=== PATIENT | male | born 1995 ===

== ENCOUNTER 2019-06-02 12:05 | Emergency (ER) | payer OTHER ==
[2019-06-02 12:12] VITALS: BP 158/90
[2019-06-02] MEDS ORDERED: BOOSTRIX IM ONE (13:18)
--- NOTE | 2019-06-02 13:24 | Emergency Department Report ---
HPI - General Chief Complaint: Laceration/Recheck/Suture Time Seen by Provider: 06/02/19 12:59 - HPI HPI: 24-year-old male presents to the emergency department with a complaint of left thumb pain and a thumb laceration that occurred while working, just prior to presentation. Patient cut himself with a box spinner type bleed/knife. His last tetanus vaccination was about 5 years ago. He is right-hand dominant. He had a lot of bleeding at first but it improved with a pressure dressing. ED Past Medical Hx - Past Medical History Previous Medical History?: No - Surgical History Past Surgical History?: No - Social History Smoking Status: Current Every Day Smoker Substance Use Type: None - Medications Home Medications: Home Medications Medication Instructions Recorded Confirmed Last Taken Type Sulfamethoxazole/Trimethoprim 1 each PO BID #10 tablet 06/02/19 Unknown Rx [Bactrim DS TAB] ED Review of Systems ROS: Stated complaint: CUT LEFT HAND Other details as noted in HPI Comment: All other systems reviewed and negative Constitutional: denies: chills, fever Musculoskeletal: arthralgia. denies: joint swelling Skin: other (laceration). denies: rash Neurological: denies: numbness, paresthesias Physical Exam - Physical Exam Vital Signs: Vital Signs 06/02/19 12:11 Temperature 98.4 F Pulse Rate 77 Respiratory 20 Rate Blood Pressure 158/90 O2 Sat by Pulse 100 Oximetry Physical Exam: GENERAL: The patient is well-developed well-nourished. HENT: Normocephalic. Atraumatic. Patient has moist mucous membranes. EYES: Extraocular motions are intact. NECK: Supple. Trachea is midline. SKIN: There is a 3 cm laceration to the left thumb around the level of the interphalangeal joint. There is some venous oozing. NEURO: The patient is awake, alert, and oriented. The patient is cooperative. The patient has no focal neurologic deficits. Normal speech. MUSCULOSKELETAL: Tenderness to palpation to the affected left thumb. Capillary refill less than 2 seconds and radial pulses +2 over 4 to the affected left thumb and wrist. ED Course Vital Signs 06/02/19 12:11 Temperature 98.4 F Pulse Rate 77 Respiratory 20 Rate Blood Pressure 158/90 O2 Sat by Pulse 100 Oximetry - Laceration /Wound Repair Left Finger Wound Location: upper extremity (left thumb) Wound Length (cm): 3 Wound's Depth, Shape: superficial, linear Wound Explored: no foreign body removed Irrigated w/ Saline (ccs): 30 Anesthesia: 1% Lidocaine Volume Anesthetic (ccs): 3 Wound Repaired With: sutures Suture Size/Type: 5:0, proline Number of Sutures: 9 (1 horizontal mattress, the rest simple interrupted) Layer Closure?: No Sterile Dressing Applied?: Yes ED Medical Decision Making - Radiology Data Radiology results: image reviewed interpreted by me: X-ray of the left thumb does not show any fracture, dislocation or any acute process. - Medical Decision Making Patient presents with a left thumb laceration after cutting himself with a knife or a box spinner. He has full range of motion of the thumb and is neurov ascularly intact. X-ray does not show any fracture, dislocation, foreign body, or any other acute process. The laceration was closed with 9 sutures including 1 horizontal mattress. He'll be placed on some antibiotics. He is placed in a thumb splint for some immobilization as it is a high tension area. We discussed monitoring for infection. Sutures will need to be removed in 7 days. He will return with any worsening of his symptoms or any acute distress. - Differential Diagnosis laceration, abrasion, tendon rupture, fracture Critical Care Time: No Critical care attestation.: If time is entered above; I have spent that time in minutes in the direct care of this critically ill patient, excluding procedure time. ED Disposition Clinical Impression: Laceration of thumb, left Qualifiers: Encounter type: initial encounter Damage to nail status: without damage Foreign body presence: without foreign body Qualified Code(s): S61.012A - Laceration without foreign body of left thumb without damage to nail, initial encounter Disposition: DC-01 TO HOME OR SELFCARE Is pt being admited?: No Condition: Stable Instructions: Suture Care (ED), Laceration (ED) Additional Instructions: The sutures will need to be removed in 7 days and can be done so at a primary care office, Urgent care, or back in the emergency department. Use the thumb splint for the next few days to avoid too much movement of the thumb so the laceration can remained closed and heal. Return to the emergency Department with any worsening of your symptoms or with any acute distress, or with any signs or symptoms of infection such as increased pain, surrounding redness, sw elling, development of fever, discharge of pus. I am giving him a referral for a local orthopedist, Dr. Vang, to follow-up regarding the thumb laceration and pain. Prescriptions: Sulfamethoxazole/Trimethoprim [Bactrim DS TAB] 1 each PO BID #10 tablet Referrals: PRIMARY CAREMD [Primary Care Provider] - 3-5 Days HUMBERTO JAY MD [Staff Physician] - 3-5 Days MARIE VANG MD [Staff Physician] - 3-5 Days Time of Disposition: 15:09 Print Language: SWEDISH
[2019-06-02] MEDS ORDERED: XYLOCAINE 1% 20 mL INFILTRATI ONE (14:01)
--- NOTE | 2019-06-02 14:49 | XRay Report ---
LEFT FINGERS, 4 VIEWS INDICATION: thumb laceration / trauma. COMPARISON: None. IMPRESSION: There is mild soft tissue swelling of the thumb. No laceration, bony abnormality or soft tissue foreign body is identified on x-ray. The second and third metacarpals appear shortened with abnormal articulation with the carpal bones. T his area is incompletely evaluated on this exam. Please correlate with the patient and consider later al views of the hand. Signer Name: Garrick Brandon Jr, MD Signed: 06/02/2019 2:44 PM Workstation Name: [id number]
== END 2019-06-02 15:15 | disposition home or self-care (01) ==
LOC: ED 12:05
DX: S61.012A Laceration without foreign body of left thumb without damage to nail, initial encounter (principal); F17.200 Nicotine dependence, unspecified, uncomplicated; Z79.899 Other long term (current) drug therapy; W26.0XXA Contact with knife, initial encounter; Y93.89 Activity, other specified; Y92.89 Other specified places as the place of occurrence of the external cause; Y99.0 Civilian activity done for income or pay
CPT/HCPCS: 90471; 90715